=== PATIENT | male | born 1945 | race Caucasian/White ===

== ENCOUNTER 2024-09-21 14:08 | Outpatient (AMB) | payer MEDICARE, SELFPAY ==
--- NOTE | 2024-09-21 14:14 | MHC.OFFVIS ---
Intake Visit Reasons: BPH/ hx renal and bladder cancer Intake Note: New patient presents today for initial visit for BPH/hx renal and bladder cancer Urology Medication:Finasteride Blood Thinner:none Antibiotic Allergies:none PVR:137ml HPI Comments Details: Gaurav is a pleasant male. He is a patient of . He is seen for the following urologic conditions - lower urinary tract symptoms - renal cancer Bobby farleyprofessor of business Lower urinary tract symptoms Discussion regarding progression of lower urinary tract symptoms Prior prostate procedure proximally 20 years ago Has recurrent symptoms with urinary urgency and frequency and some decline in stream Urge and frequency of primary concern particularly when traveling Cystoscopy performed at [facility] recommendation for repeat prostate procedure Per report UDS performed showing obstructive pattern Discussion today regarding management of urge frequency and relationship with bladder instability Highly likely to resolve with repeat outlet procedure however may also reflect underlying bladder instability Start daily tadalafil for bladder stability Currently on finasteride Plan GreenLight laser prostate procedure Renal cancer Partial nephrectomy performed approximately 2014 No recurrence on follow-up imaging Review of Systems Const Denies chills and Denies fever(s) Card Reports no additional complaints and Denies syncope Resp Denies cough GI Denies abdominal pain and Denies heartburn Reports as per HPI and Denies change in libido Neuro Denies syncope Psych Denies change in libido Endo Denies change in libido Physical Exam Const General: cooperative, healthy appearing, comfortable and no acute distress Orientation/consciousness: patient oriented x3 HEENT Face and sinus: Yes normal facial exam Mouth: moist mucous membranes Neck Neck: Yes normal visual inspection, Yes full ROM and Yes trachea midline Chest Chest palpation & inspection: normal inspection of the chest Resp Effort & Inspection: normal respiratory effort, able to speak in complete sentences and no respiratory distress GI Inspection: Yes normal to inspection Back/Spine/Pelvis Cervical Spine: normal cervical lordosis Thoracic/Lumbar Spine: thoracic and lumbar spine normal to inspection Skin General skin exam: no rashes or lesions noted Neuro General: patient oriented x3, gait normal, tone normal and moves all extremities Extrem General: Yes normal to inspection and Yes capillary refill normal Office Procedures Post Void Residual Post Residual Void Post Void Residual (PVR): 137 [id number] Void Residual by ultrasound Results AMB Urinalysis, Automated UA Leukoctes 0 Idalia/uL Last Edit by MERY Davila on 09/21/24 16:36 UA Nitrite Negative Last Edit by MERY Davila on 09/21/24 16:36 UA Urobilinogen 0.2 mg/dL Last Edit by MERY Davila on 09/21/24 16:36 UA Protein 30 mg/dL Last Edit by MERY Davila on 09/21/24 16:36 UA pH 7.0 Last Edit by MERY Davila on 09/21/24 16:36 UA Blood 0 Crow/uL Last Edit by MERY Davila on 09/21/24 16:36 UA Specific [place] 1.010 Last Edit by MERY Davila on 09/21/24 16:36 UA Ketone Negative Last Edit by MERY Davila on 09/21/24 16:36 UA Bilirubin 0 mg/dL Last Edit by MERY Davila on 09/21/24 16:36 UA Glucose 0 mg/dL Last Edit by [facility] on 09/21/24 16:36 Results Reviewed Results Reviewed: Laboratory Last Values Urine pH (Auto) 7.0 09/21/24 16:36 Specific [place] (Auto) 1.010 09/21/24 16:36 Urine Protein (Auto) 30 mg/dL 09/21/24 16:36 Glucose (UA)(Auto) 0 mg/dL 09/21/24 16:36 Urine Ketones (Auto) Negative 09/21/24 16:36 Urine Blood (Auto) 0 Crow/uL 09/21/24 16:36 Urine Nitrite (Auto) Negative 09/21/24 16:36 Urine Bilirubin (Auto) 0 mg/dL 09/21/24 16:36 Urine Urobilinogen (Auto) 0.2 mg/dL 09/21/24 16:36 Leukocyte Esterase (Auto) 0 Idalia/uL 09/21/24 16:36 Assessment & Plan Assessment & Plan (1) Lower urinary tract symptoms due to benign prostatic hyperplasia: Code(s): N40.1 - Benign prostatic hyperplasia with lower urinary tract symptoms Category: Medical Plan Start daily tadalafil Schedule GreenLight laser We discussed the nature of the decision and reasonable options for performing a prostate intervention. Interventions include TURP, GreenLight laser enucleation of the prostate, GreenLight laser ablation of the prostate, transurethral incision of the prostate, and I-Tend prostate procedure. Options such as medical therapy were discussed. The relative uncertainties and benefits related to each alternate procedure were adequately discussed. General surgical risks including, but not limited to, pain, bleeding, infection, myocardial infarction, pulmonary embolus, deep vein thrombosis and cerebrovascular accident which may result in further hospitalization were discussed. Full disclosure of the procedure as well as all major risks, benefits and complications were discussed including but not limited to damage to the urethra or bladder neck, recurrent BPH, retrograde ejaculation, bladder infection, urge, de maricel frequency, incomplete emptying, dysuria, remote chance of erectile dysfunction, epididymitis, and meatal stenosis. The success rate of the procedure was discussed. Success of the procedure in the short-term does not necessarily guarantee that long-term success will be maintained. Suitable follow up will need to be maintained. The patient showed understanding of discussion. An opportunity was provided for questions to be answered and wishes to proceed with the following procedure. - Greenlight laser Orders: Orders AMB Urinalysis Automated Today Z13.9 - Encounter for screening, unspecified Medications: New tadalafil [id number] [facility] [id number] Member [id number] 5 mg PO DAILY 90 days 90 tabs 1RF ASTORGA N40.1 - Benign prostatic hyperplasia with lower urinary tract symptoms Patient Instructions: This note is constructed using voice recognition software. While every effort has been made to ensure accuracy principal military analyst errors may have been included. Imaging studies, laboratory and physical exam results were discussed and reviewed in detail. No major barriers to patient understanding were identified. An opportunity to ask questions regarding the treatment plan was provided. All questions were answered. The patient expressed understanding and agreement with the above treatment plan. The patient is aware they should contact our office by phone for worsening of their current condition or the appearance of new urologic symptoms. Compliance is encouraged with any medications and followup testing that is ordered. It is a privilege to participate in the urologic care of your patient. If you have any questions or concerns regarding treatment for the above conditions, or other urologic issues, please do not hesitate to contact me. The office telephone contact is [phone]. Sincerely, Dr Mateo Hawkins MD, [facility] - Urology Compassionate Specialist Care for the Genitourinary System Coding Level of Care Code New Pt Level 4 (08907) Diagnoses Lower urinary tract symptoms due to benign prostatic hyperplasia N40.1 CPT Codes Post Residual Void - PVR CPT Code: 82933-Ghef Void Residual by ultrasound ([id number])
--- OUTSIDE RECORDS SUMMARY | 2024-09-21 15:53 | XMS_ITS | Clinical Summary ---
Author Organization [facility] Address [address] [place] [address] Care Team Providers Care Massage Operator Name Role Phone Javier Paula MD Primary Care Provider Allergies Active Allergy Reactions Criticality Noted Date Comments Dust 10/14/2017 Grass 10/14/2017 Medications Medication Sig Dispensed Refills Start Date End Date Status alfuzosin (UROXATRAL) 10 MG 24 hr tablet Take 10 mg by mouth daily. 0 Active dutasteride (AVODART) 0.5 MG capsule Take 0.5 mg by mouth daily. 0 Active pravastatin (PRAVACHOL) tablet 20 mg Take 20 mg by mouth daily. 0 Active dilTIAZem (CARDIZEM CD) 120 MG 24 hr capsule Take 120 mg by mouth daily. 0 Active levothyroxine (SYNTHROID, LEVOXYL) tablet 88 mcg Take 88 mcg by mouth every morning on an empty stomach. 0 Active Active Problems Problem Noted Date Diagnosed Date Enlarged prostate with urinary obstruction 10/17 History of kidney cancer 10/17/2017 Gross hematuria 07/21/2016 Elevated PSA 06/20/2013 Resolved Problems Problem Noted Date Diagnosed Date Resolved Date Hematospermia 10/17/2017 10/17/2017 BPH without obstruction/lowe r urinary tract symptoms 07/21/2016 10/17/2017 Kidney carcinoma 07/21/2016 10/17/2017 Incomplete bladder emptying 04/21/2016 10/17/2017 Poor urinary stream 08/29/2015 10/18/19 18 Nocturia 06/20/2011 10/17/2017 Prostate disorder 06/20/2009 10/17/2017 Social History Tobacco Use Types Packs/Day Years Used Date Smoking Tobacco: Former Smokeless Tobacco: Never Alcohol Use Standard Drinks/Week Comments Yes 0 (1 standard drink = 0.6 oz pur e alcohol) Sex and Gender Information Value Date Recorded Sex Assigned at Not on file Gender Identity Not on file Sexual Orientation Not on file Last Filed Vital Signs Vital Sign Reading Time Taken Comments Blood Pressure 106/68 10/17/2017 8:48 AM EDT Pulse - - Temperature - - Respiratory Rate - - Oxygen Saturation - - Inhaled Oxygen Concentration - - Weight 84.8 kg (187 lb) 10/17/2017 8:48 AM EDT Height 180.3 cm (5' 11 ) 10/17/2017 8:48 AM EDT Body Mass Index 26.08 10/17/2017 8:48 AM EDT Plan of Treatment Health Maintenance Due Date Last Done Comments Hepatitis C Screening 1945 COVID-19 Vaccine (#1) 1947 Depression Screening 1959 Preventative Health Evaluation 1965 DTap / Tdap / Td (1 - Tdap) 1966 Shingrix-Zoster Vaccine (1 of 2) 1997 Fall Risk Assessment 2012 Pneumococcal Vaccine (1 of 1 - PCV) 2012 RSV Adult > 60+ Yrs or Pregn ant (1 - 1-dose 75+ series) 2022 Influenza Vaccine (#1) 2024 Hepatitis B Vaccines Aged Out No long er eligible based on patient's age to complete this topic RSV Ped < 20 months Aged Out No longe r eligible based on patient's age to complete this topic Care Teams Massage Operator Relationship Specialty Start Date End Date Javier Paula MD [address] [place] [address] PCP - General Family Medicine 10/07/17
== END 2024-09-21 15:16 | disposition home or self-care (01) ==
LOC: HO.HUSH 14:09
PROVIDERS: PCP Family Medicine; Visit Provider Urology
DX: Z13.9 Encounter for screening, unspecified (principal); N40.1 Benign prostatic hyperplasia with lower urinary tract symptoms
CPT/HCPCS: 99204

== ENCOUNTER → 2024-09-21 14:08 | Outpatient (BNVA) | payer MEDICARE, SELFPAY | PROVIDERS: PCP Family Medicine; Visit Provider Urology | DX: N40.1 Benign prostatic hyperplasia with lower urinary tract symptoms (principal) | CPT/HCPCS: 51798; 81003; 99202 ==

== ENCOUNTER 2024-12-03 08:20 | Day surgery (SDC) | payer MEDICARE, SELFPAY ==
[2024-11-29 13:22] VITALS: BMI 23.5
--- OUTSIDE RECORDS SUMMARY | 2024-11-30 13:06 | XMS_ITS | Clinical Summary ---
Author Organization [facility] Address [address] [place] [address] Care Team Providers Care Seamstress Fitter Name Role Phone Javier Paula MD Primary [...] - 1-dose 75+ series) 2022 Influenza Vaccine (Season Ended) 2025 Hepatitis B Vaccines Aged Out No long er eligible based on patient's age to complete this topic RSV Ped < 20 months Aged Out No longe r eligible based on patient's age to complete this topic Care Teams Seamstress Fitter Relationship Specialty Start Date End Date Javier Paula MD [address] [place] [address] PCP - General Family Medicine 10/07/17
--- NOTE | 2024-11-30 13:46 | HO.ANESPROP2 ---
Documented by User: Lindy Rene NP 11/30/24 13:47 HPI - Anesthesia Eval Consult details Narrative: 79yo M for Laser Ablation Prostate w/Green Light PMFSH Active Problems Active Problems: All Active Problems Lower urinary tract symptoms due to benign prostatic hyperplasia (Acute) Past Medical History Medical History Renal cancer SVT (supraventricular tachycardia) Palpitations Thyroid disease Hyperlipidemia Constipation Chronic insomnia BPH (benign prostatic hyperplasia) Surgical History Surgical History Hx of partial nephrectomy S/P TURP (status post transurethral resection of prostate) Social History Social History Are you a primary acute care registered nurse to a significant other at home: No Do you presently have visiting nurse or other home services: No Patient Tobacco Use Status: Former Tobacco user Tobacco use type: Cigarette Years Smoked: 2 Smoked in Last 30 Days: No Use of substances other than those prescribed or required for medical reasons: No Have you been hit, kicked, punched, or otherwise hurt by someone within the past year? If so, by whom?: No Are you DNR?: No Advance Directives: No Advance Directives Information Provided: No Advance Directives on File: No Poor oral hygiene: No Meds Allergies Allergy/AdvReac Type Severity Reaction Status Date / Time Beta-Blockers AdvReac Intermediate Fatigued Verified 12/03/24 08:27 (Beta-Adrenergic Bloc Home Medications ?Medication ?Instructions ?Recorded ?Confirmed ?Last Taken ?Type alfuzosin 10 mg tablet,extended 10 mg PO DAILY 09/21/24 12/03/24 12/02/24 History release 24 hr finasteride 1 mg tablet 1 mg PO DAILY 09/21/24 12/03/24 12/02/24 History levothyroxine 112 mcg capsule 112 mcg PO DAILY 09/21/24 12/03/24 12/03/24 History pravastatin 20 mg tablet 20 mg PO DAILY 09/21/24 12/03/24 12/02/24 History diltiazem HCl 120 mg 120 mg PO DAILY 12/03/24 12/03/24 12/02/24 History capsule,extended release 24 hr Exam Height,Weight and Vital Signs: Height 5 ft 11.26 in Weight 77 kg Assessment and Plan Assessment Anesthesia Assessment: Chart Reviewed Documented by User: Katiuska Linares MD 12/03/24 10:21 PMFSH Past Medical History Medical History Renal cancer SVT (supraventricular tachycardia) Palpitations Thyroid disease Hyperlipidemia Constipation Chronic insomnia BPH (benign prostatic hyperplasia) Surgical History Surgical History Hx of partial nephrectomy S/P TURP (status post transurethral resection of prostate) History of Problems with Anesthesia: No Social History Social History Are you a primary acute care registered nurse to a significant other at home: No Do you presently have visiting nurse or other home services: No Patient Tobacco Use Status: Former Tobacco user Tobacco use type: Cigarette Years Smoked: 2 Smoked in Last 30 Days: No Use of substances other than those prescribed or required for medical reasons: No Have you been hit, kicked, punched, or otherwise hurt by someone within the past year? If so, by whom?: No Are you DNR?: No Advance Directives: No Advance Directives Information Provided: No Advance Directives on File: No Poor oral hygiene: No Meds Allergies Allergy/AdvReac Type Severity Reaction Status Date / Time Beta-Blockers AdvReac Intermediate Fatigued Verified 12/03/24 08:27 (Beta-Adrenergic Bloc Home Medications ?Medication ?Instructions ?Recorded ?Confirmed ?Last Taken ?Type alfuzosin 10 mg tablet,extended 10 mg PO DAILY 09/21/24 12/03/24 12/02/24 History release 24 hr finasteride 1 mg tablet 1 mg PO DAILY 09/21/24 12/03/24 12/02/24 History levothyroxine 112 mcg capsule 112 mcg PO DAILY 09/21/24 12/03/24 12/03/24 History pravastatin 20 mg tablet 20 mg PO DAILY 09/21/24 12/03/24 12/02/24 History diltiazem HCl 120 mg 120 mg PO DAILY 12/03/24 12/03/24 12/02/24 History capsule,extended release 24 hr Exam Airway Mallampati Class: III TM Dist: >3cm Neck ROM: Full Loose/Missing/Broken Teeth: No Heart: RRR Lungs: CTA Assessment and Plan Assessment Anesthesia Assessment: Anesthesia Plan Discussed Final Anesthetic Review History of Problems with Anesthesia: No NPO: Yes ASA Class: II Final Preanesthetic Review: Meds/Allgs Chart Reviewed, Consent Obtained/Reviewed and Anes Risks/Benef Reviewed Patient Risk: Low Procedure Risk: Low Anesthetic Plan Anesthetic Plan: GA Disposition: Standard PACU
[2024-12-03 08:29] VITALS: BP 127/58; PULSE 61; RESP 16; TEMP 36.4; O2SAT 100; BMI 23.2
[2024-12-03] MEDS: Lactated Ringers 1,000 ML 100 ML IVCONT (08:49)
--- NOTE | 2024-12-03 09:00 | PC.NURSE ---
Patient in preop. Question of first degree AV block on monitor. No EKG on file for comparison. Dr. Linares made aware. No new orders at this time. OR nurse Violeta Evangelista made aware.
--- NOTE | 2024-12-03 10:25 | MHC.SHP ---
Pre-Procedural Eval Section A - 24 Hr Update-Section A only Date of Service: 12/03/24 The patient is an INPATIENT: No Changes since office visit: No Cold of Flu in the past 2 weeks, No New Medical Problems, No Changes in Medication and No Patient answered all questions The patient has been examined within 24 hours of the surgical procedure. The History & Physical has been completed within 30 days and I have reviewed it.: Yes Section B - Complete if H&P > 30 days Chief Complaint: Benign prostatic hyperplasia with lower urinary tr Relevant Family History (Specify if Yes): No Relevant Social History: None Present Medications: see Short Stay Collaborative assessment Medical History: No relevant PMH History of Previous Operations: No relevant previous surgery Allergies: Allergies Allergy/AdvReac Type Severity Reaction Status Date / Time Beta-Blockers AdvReac Intermediate Fatigued Verified 12/03/24 08:27 (Beta-Adrenergic Bloc Review of Systems Sugical H&P ROS: Negative: Constitution, Cardiovascular, Respiratory, Neurological, Psychiatric, Hem-Onc, Allergic/Immunologic, Gastrointestinal, Genitourinary, Musculoskeletal, Integumentary, Endocrine and Eyes/Ears/Nose/Throat Exam Surgical H&P Exam: Normal: HEENT, Normal: Heart, Normal: Lungs, Normal: Extremities, Normal: Abdomen, Normal: Skin and Normal: Neurological Plan Diagnosis/Plan: Unchanged (greenlight laser prostatetcomy) I have reviewed the history and physical and performed a pertinent physical examination on my patient. No changes have occurred unless specified. Time Spent With Patient Time: Total time managing care of this patient today ____ minutes.
[2024-12-03] MEDS: levoFLOXacin/D5W 500 MG/100 ML PIGGYBACK 100 MG IV (10:40)
--- NOTE | 2024-12-03 11:28 | P.OP_ITS ---
Operative Note Operative Note Date of Service: 12/03/24 Narrative: PreOperative Diagnosis: Recurrent Bladder outlet obstruction Post Operative Diagnosis: Recurrent Bladder outlet obstruction Procedure: GreenLight Laser Enucleation of the prostate CPT 70175 Surgeon: Dr Mateo Hawkins Anesthesia: General History of bladder outlet obstruction. Prior TURP proximally 20 years ago Recurrent symptoms particularly weakness of stream and hesitancy Treated with alpha-holly and other medications. Still with symptoms. On cystoscopy in office has recurrent trilobar impingement. Recommendation for prostate procedure with laser enucleation of prostate. Risks and benefits have been discussed. Focus was placed on development of retrograde ejaculation which is a normal part of this procedure. Procedure: After informed consent was verified the patient was brought to the operating room and placed in a supine position. Anesthesia was administered per protocol. Patient was placed in modified dorsal lithotomy position and prepped and draped in a sterile fashion. Safety pause time-out was confirmed. Antibiotics have been given. A Twenty-four Pakistani laser cystoscope was inserted per urethra. No abnormalities were found of the anterior and bulbar urethra. The prostatic urethra shows - recurrent hypertrophy particularly left lateral lobe and mild recurrent median lobe crowding. The bladder was examined and both ureteric orifices were seen in their normal positions away from the area of interest. Prior TURP defect in proximal portion readily apparent. Bladder trabeculation with multiple small enlarged cellules/diverticula - grade 2/3 - pictures taken Using a GreenLight laser with initial settings of 80 st incisions were made at the 5 and 7 o'clock position to delineate the recurrent median lobe. The incisions were taken down from the bladder neck down to the area just proximal of the veru. These were gradually deepened in order to define the lateral aspects of the median lobe area. The deep boundary of enucleation was defined by the prostate surgical capsule. Once clearly defined the grooves were extended in the lateral directions in order to create a deep groove. The median lobe was then ablated and enucleated tissue released into the bladder with the laser power increased to 120 W - moderate size Once the median lobe area had been cleared, attention was directed to the lateral lobes. The left lateral lobe had the most significant amount of regrowth. First the 05:00 o'clock groove was further developed. This was moved in the lateral direction to undermine the tissue on the lateral side running from the bladder neck to the prostate apex. The ureteric orifice was used to guide incisions. The laser fiber was placed at the 1 o'clock position and a secondary groove was developed down to the level of prostatic capsule. The creation of a second deep groove defined a segment of intervening tissue similar to a slice of orange. At the apex of the prostate the laser was used to vertically link the two grooves releasing the intervening tissue and creating a segment of tissue. This tissue was then removed with a combination of enucleation and ablation working from the apex toward the bladder neck. A similar procedure was repeated on the patient's right-hand side. The only differences being the position of the lateral groove at he 7 o'clock position and the secondary groove at the 11 o'clock position, Otherwise the procedure was developed in a mirror fashion. Laser power 120 W After the majority of tissue had been debulked remnant tissue was ablated with the side fire laser and the curve of the prostate followed up each side wall clearly defining the anterior remnant strip that remained between the 11 and 1 o'clock positions. In this case the anterior tissue protruded into the prostatic fossa and was partially ablated with the laser At completion debris and pieces of prostate were removed from the bladder with irrigation. We could note prostate calcifications marking the surgical capsule were within the field Both ureteric orifices were reviewed again in shown to be patent in away from any areas of energy damage. The apical area was reviewed and any stray mucosal ooze was controlled. A 22 Pakistani 30 cc balloon Chao catheter was placed into the bladder using a flexible stylet. Clear efflux was obtained upon irrigation with a Trino piston syringe. 30 cc was placed in the balloon and gentle traction was placed. A snap was used to hold tension on the catheter to control bleeding during patient moved and transported. A drainage bag was placed. Once transportation is complete to the PACU the snap will be removed. The patient tolerated the procedure well, he was extubated in the operating and transferred in a stable condition to the recovery area. Total Power 146 kJ Lasing time 22:10 Pathology: Prostate tissue Drains: Chao catheter
[2024-12-03 11:33] VITALS: BP 108/57; PULSE 59; RESP 18; TEMP 36.2; O2SAT 100
[2024-12-03 11:38] VITALS: BP 90/42; PULSE 57; RESP 18; O2SAT 97
[2024-12-03 11:43] VITALS: BP 99/49; PULSE 52; RESP 16; O2SAT 98
[2024-12-03 11:48] VITALS: BP 101/43; PULSE 53; RESP 16; O2SAT 98
[2024-12-03 12:03] VITALS: BP 111/43; PULSE 57; RESP 20; TEMP 36.1; O2SAT 97
[2024-12-03] MEDS: oxyCODONE HCl Immed Release 5 MG TABLET PO (12:29)
== END 2024-12-03 12:40 | disposition home or self-care (01) ==
PROVIDERS: PCP Family Medicine; Visit Provider Urology
PROC: (CPT 52648; principal; 2024-12-03 10:00)
DX: N40.1 Benign prostatic hyperplasia with lower urinary tract symptoms (principal); N13.8 Other obstructive and reflux uropathy; R39.15 Urgency of urination; R39.12 Poor urinary stream; R35.0 Frequency of micturition; Z85.528 Personal history of other malignant neoplasm of kidney; Z90.5 Acquired absence of kidney; Z79.899 Other long term (current) drug therapy; Z98.890 Other specified postprocedural states; Z87.891 Personal history of nicotine dependence
CPT/HCPCS: 52649; 88305; J1100; J1885; J1956; J2003; J2405; J2704; J3010

== ENCOUNTER → 2024-12-03 08:20 | Outpatient (BNV) | payer MEDICARE, SELFPAY | PROVIDERS: PCP Family Medicine; Visit Provider Urology | DX: N32.0 Bladder-neck obstruction (principal) | CPT/HCPCS: 52649 ==

== ENCOUNTER → 2024-12-05 09:26 | Outpatient (BNVA) | payer MEDICARE, SELFPAY | PROVIDERS: PCP Family Medicine; Visit Provider Urology | DX: N40.1 Benign prostatic hyperplasia with lower urinary tract symptoms (principal) | CPT/HCPCS: 51700; 51798 ==

== ENCOUNTER 2025-01-16 14:28 | Outpatient (AMB) | payer MEDICARE, SELFPAY ==
--- NOTE | 2025-01-16 14:35 | MHC.OFFVIS ---
Intake Visit Reasons: Greenlight/pvr Intake Note: New patient presents today for green light Post Op Urology Medication:Alfuzosin,Finasteride,Tadalafil Blood Thinner:none Antibiotic Allergies:none PVR:194 Test Fixture Designer Required: No Accompanied by: Self / Same As Patient Allergies Beta-Blockers (Beta-Adrenergic Bloc Adverse Reaction (Intermediate, Verified 01/16/25 14:37) Fatigued HPI Comments Details: Gaurav is a pleasant male. He is a patient of . He is seen for the following urologic conditions - lower urinary tract symptoms - renal cancer Six week follow-up GreenLight laser 200 cc residual Still remains on finasteride and tadalafil Stop finasteride Continue tadalafil Six-month follow-up check PSA Oxybutynin 5 mg if needed Lower urinary tract symptoms Discussion regarding progression of lower urinary tract symptoms Prior prostate procedure proximally 20 years ago Has recurrent symptoms with urinary urgency and frequency and some decline in stream Urge and frequency of primary concern particularly when traveling Cystoscopy performed at [facility] recommendation for repeat prostate procedure Per report UDS performed showing obstructive pattern Discussion today regarding management of urge frequency and relationship with bladder instability Highly likely to resolve with repeat outlet procedure however may also reflect underlying bladder instability Start daily tadalafil for bladder stability Currently on finasteride GreenLight laser procedure - 12/12 Renal cancer Partial nephrectomy performed approximately 2014 No recurrence on follow-up imaging [facility] Medical History Renal cancer SVT (supraventricular tachycardia) Palpitations Thyroid disease Hyperlipidemia Constipation Chronic insomnia BPH (benign prostatic hyperplasia) Surgical History Hx of partial nephrectomy S/P TURP (status post transurethral resection of prostate) Social History Are you a primary career services coordinator to a significant other at home: No Do you presently have visiting nurse or other home services: No Patient Tobacco Use Status: Former Tobacco user Tobacco use type: Cigarette Years Smoked: 2 Assessment & Plan Assessment & Plan (1) Lower urinary tract symptoms due to benign prostatic hyperplasia: Code(s): N40.1 - Benign prostatic hyperplasia with lower urinary tract symptoms Category: Medical Plan Six-month follow-up PSA Medications: New oxybutynin chloride ER 1 tab in 24 hrs if needed 5 mg PO ONCE PRN 30 tabs 1RF bladder urge 30 days N40.1 - Benign prostatic hyperplasia with lower urinary tract symptoms Refilled tadalafil [id number] [facility] [id number] Member [id number] 5 mg PO DAILY 90 tabs 1RF ASTORGA 90 days N40.1 - Benign prostatic hyperplasia with lower urinary tract symptoms Patient Instructions: This note is constructed using voice recognition software. While every effort has been made to ensure accuracy outsole flexer errors may have been included. Imaging studies, laboratory and physical exam results were discussed and reviewed in detail. No major barriers to patient understanding were identified. An opportunity to ask questions regarding the treatment plan was provided. All questions were answered. The patient expressed understanding and agreement with the above treatment plan. The patient is aware they should contact our office by phone for worsening of their current condition or the appearance of new urologic symptoms. Compliance is encouraged with any medications and followup testing that is ordered. It is a privilege to participate in the urologic care of your patient. If you have any questions or concerns regarding treatment for the above conditions, or other urologic issues, please do not hesitate to contact me. The office telephone contact is [phone]. Sincerely, Dr Mateo Hawkins MD, [facility] - Urology Compassionate Specialist Care for the Genitourinary System Coding Level of Care Code Est Pt Level 3 (58524) Diagnoses Lower urinary tract symptoms due to benign prostatic hyperplasia N40.1
--- OUTSIDE RECORDS SUMMARY | 2025-01-16 15:11 | XMS_ITS | Encounter Summary ---
Author Organization [facility] Address [address] [address] Phone Care Team Providers Care Supervisor Throwing Department Name Role Phone Javier Paula MD Primary Care Provider [phone] Javier Paula MD Primary Care Provider [phone] Encounter Details Date Type Department Care Team (Late st Contact Info) Description 08/12/2017 Ancillary Orders [facility] External Provider Virtual Department [address] [place] [address] Alistair Cotton MD [address] [place] [address], [address] [place] [address] [email or web address] Personal history of other malignant neoplasm of kidney (CODE); Gross hematuria Social History Tobacco Use Types Packs/Day Years Used Date Smoking Tobacco: Never Assessed Sex and Gender Information Value Date Recorded Sex Assigned at Not on file Legal Sex Male 7:31 PM EST Gender Identity Not on file Sexual Orientation Not on file documented as of this encounter Plan of Treatment Not on file documented as of this encounter Results * US Kidneys (10/13/2017 8:13 AM EDT) Anatomical Region Laterality Modality Abdomen, Kidney Ultrasound 10/13/2017 8:04 AM EDT Impressions 10/13/2017 8:21 AM EDT No evidence of tumor recurrence or acute findings. POS [id number] Narrative 10/13/2017 8:21 AM EDT COMPARISON: 01/24/2017. RENAL ULTRASOUND FINDINGS: Right kidney measures 10 x 5 cm. Left kidney measures 13 x 5 cm. No hydronephrosis, solid masses or calculi. Cortical echogenicity and thickness are normal. No perinephric fluid collections. Procedure Note Chavez Weeks MD - 10/13/2017 COMPARISON: 01/24/2017. RENAL ULTRASOUND FINDINGS: Right kidney measures 10 x 5 cm. Left kidney measures 13 x 5 cm. Nohydronephrosis, solid masses or calculi. Cortical echogenicity andthickness are normal. No perinephric fluid collections. IMPRESSION: No evidence of tumor recurrence or acute findings. POS [id number] us Alistair Cotton MD IMG US RENAL Final Result * XR CHEST PA AND LATERAL 2 VIEWS (10/13/2017 8:11 AM EDT) Anatomical Region Laterality Modality Chest Radiographic Nazia ging 10/13/2017 9:41 AM EDT Impressions 10/13/2017 9:42 AM EDT Unremarkable plain film appearance of the chest. No evidence of metastatic disease nor acute pathology. POS [id number] Narrative 10/13/2017 9:42 AM EDT PA and lateral chest, 2 views, 3 images Compare 01/24/2017. No pulmonary nodules or masses have become apparent No infiltrate, interstitial disease or effusion. No gross adenopathy. Normal heart and mediastinal contour. No worrisome bony abnormalities. Procedure Note David Templeton MD - 10/13/2017 PA and lateral chest, 2 views, 3 images Compare 01/24/2017. No pulmonary nodules or masses have become apparent No infiltrate, interstitial disease or effusion. No gross adenopathy. Normal heart and mediastinal contour. No worrisome bony abnormalities. IMPRESSION: Unremarkable plain film appearance of the chest. No evidence of metastaticdisease nor acute pathology. POS [id number] Alistair Cotton MD IMG XR CHEST Final Result documented in this encounter Visit Diagnoses Diagnosis Personal history of other malignant neoplasm of kidney (CODE) Gross hematuria Personal history of other malignant neoplasm of kidney (CODE) Gross hematuria Personal history of other malignant neoplasm of kidney (CODE) Gross hematuria documented in this encounter Care Teams Supervisor Throwing Department Relationship Specialty Start Date End Date Javier Paula MD [address] [place] [address] PCP - General 04/05/17 11/02/21 Javier Paula MD [address] [place] [address] PCP - General Family Medicine 11/03/21 documented as of this encounter Additional Source Comments The information contained in this document represents components of the legal health record. It is not the complete legal health record.[facility]
--- OUTSIDE RECORDS SUMMARY | 2025-01-16 15:11 | XMS_ITS | Clinical Summary ---
Author Organization [facility] Address [address] [place] [address] Care Team Providers Care Loom Fixer Helper Name Role Phone Javier Paula MD Primary [...] 1-dose 75+ series) 2022 Influenza Vaccine (#1) 2025 Hepatitis B Vaccines Aged Out No long er eligible based on patient's age to complete this topic RSV Ped < 20 months Aged Out No longe r eligible based on patient's age to complete this topic Care Teams Loom Fixer Helper Relationship Specialty Start Date End Date Javier Paula MD [address] [place] [address] PCP - General Family Medicine 10/07/17
== END 2025-01-16 15:40 | disposition home or self-care (01) ==
LOC: HO.HUSH 14:28
PROVIDERS: PCP Family Medicine; Visit Provider Urology
DX: N40.1 Benign prostatic hyperplasia with lower urinary tract symptoms (principal)
CPT/HCPCS: 99024

== ENCOUNTER → 2025-01-16 14:28 | Outpatient (BNVA) | payer MEDICARE, SELFPAY | PROVIDERS: PCP Family Medicine; Visit Provider Urology | DX: N40.1 Benign prostatic hyperplasia with lower urinary tract symptoms (principal); R35.0 Frequency of micturition; R39.15 Urgency of urination; C64.9 Malignant neoplasm of unspecified kidney, except renal pelvis; Z90.79 Acquired absence of other genital organ(s); Z90.5 Acquired absence of kidney; Z79.899 Other long term (current) drug therapy | CPT/HCPCS: 51798; 99212 ==

== ENCOUNTER 2025-05-01 10:38 | Outpatient (AMB) | payer MEDICARE, SELFPAY ==
--- OUTSIDE RECORDS SUMMARY | 2025-04-28 23:59 | XMS_ITS | Continuity of Care Document ---
Author Organization [facility] Address [address] [place] [address]- Care Team Providers Care City Weighmaster Name Role Phone Chai GUTIERREZ, Javier Galaviz Primary Care Physician Encounter [facility] Date(s): 03/29/25 - 04/28/25 [facility] [address] [place] [address]- Encounter Type: Triage Allergies, Adverse Reactions, Alerts Substance Criticality Severity Reaction Reaction Severity Status beta blockers Unable to assess criticality Persistent Moderate fatigue and sexual dysfunction Active Other Environmental Allergy 1 Low criticality Mild Active 1seasonal very mild Immunizations Given and Recorded Vaccine Date Status Refusal Reason influenza virus vaccine, inactivated 03/26/25 Darren rded influenza virus vaccine, inactivated 02/28/24 Darren rded influenza virus vaccine, inactivated 03/21/23 Darren rded influenza virus vaccine, inactivated 02/26/22 Darren rded influenza virus vaccine, inactivated 03/18/21 Darren rded influenza virus vaccine, inactivated 1 03/31/18 Gi eron influenza virus vaccine, inactivated 05/04/17 Darren rded influenza virus vaccine, inactivated 05/04/14 Darren rded influenza virus vaccine, inactivated 2 04/12/12 Gi eron influenza virus vaccine, inactivated 3 04/01/11 Gi eron SARS-CoV-2(COVID-19)mRNA-LNP vac([id number]) 03/06/25 Recorded SARS-CoV-2(COVID-19)mRNA-LNP vac(epw767) 03/21/23 Recorded SARS-CoV-2(COVID-19)mRNA-LNP vac(nte125) 02/18/24 Recorded tetanus/diphtheria/pertussis, acel(Tdap) 10/13/22 Recorded [id number] 12y+ bivalent booster vax 02/26/22 Recorded SARS-CoV-2 mRNA ([id number]) vax 09/23/21 Recorded SARS-CoV-2 (COVID-19) mRNA BNT-162b2 vac 03/24/21 Recorded SARS-CoV-2 (COVID-19) mRNA BNT-162b2 vac 09/05/20 Recorded SARS-CoV-2 (COVID-19) mRNA BNT-162b2 vac 08/13/20 Recorded pneumococcal 13-valent vaccine 4 01/01/19 Given Fluarix (oldterm) 04/07/13 Given pneumococcal 23-valent vaccine 5 08/29/12 Given Tetanus-Diphth Toxoids, Adult (oldterm) 6 11/25/11 Given Zoster Vaccine Live 7 04/08/11 Given 1Result Comment: [03/31/2018] [facility] # [id number] 2Admin Note: was not entered on date given, was on billing sheet. Entered after.tt 3Admin Note: VIM 01/12/11 4Result Comment: [facility]#[id number] 5Admin Note: VIM 10/03/09 waiver signed 6Admin Note: in ED at [facility] 7Admin Note: vim given dated 03/25/09 Medications alfuzosin 10 mg oral tablet, extended release See Instructions, TAKE 1 TABLET BY MOUTH DAILY, # 90 tablet, 1 Refills, 02/12/25 11:13:00 AM EDT, [facility]/pharmacy #[id number], 181.2, cm, 02/09/24 7:57:00 EDT, Height Start Date: 02/12/25 Status: Ordered Medication Dispense Status: Completed Quantity: 90.0 Unit: tablet Total Allowed Fills: 2 Fills Dispensed: 0 Colace sodium 100 mg oral capsule 100 mg, 1, capsule, By Mouth, Daily, PRN, # 30 capsule, Refills 2, Tot. Refills 2, Maintenance, hard stool, 11/10/22 3:41:00 PM EDT, Route to Pharmacy Electronically, [facility]/pharmacy #[id number], Partial fill upon patient request if the prescription is for a schedule II opioid drug., 180.5, cm, 11/10/22 15:04:00 EDT, Height, 81.2, kg, 01/30/23 8:01:00 EST, Dry Weight Start Date: 11/10/22 Stop Date: 02/08/23 Status: Ordered Medication Dispense Status: Completed Quantity: 30.0 Unit: capsule Total Allowed Fills: 3 Fills Dispensed: 0 Indications: Perianal venous thrombosis; DilTIAZem (Eqv-Cardizem CD) 120 mg/24 hours oral capsule, extended release 1 capsule, By Mouth, Daily, # 90 capsule, 3 Refills, Maintenance, 03/26/25 2:43:00 PM EDT, [facility]/pharmacy #[id number], 181.2, cm, 03/26/25 14:10:00 EDT, Height Start Date: 03/26/25 Status: Ordered Medication Dispense Status: Completed Quantity: 90.0 Unit: capsule Total Allowed Fills: 4 Fills Dispensed: 0 finasteride 5 mg oral tablet 1 tablet = 5 mg, By Mouth, Daily, # 90 tablet, 1 Refills, Maintenance, 02/12/25 11:13:00 AM EDT, Tablet, [facility]/pharmacy #[id number], Partial fill upon patient request if the prescription is for a schedule II opioid drug., 181.2, cm, 02/09/24 7:57:00 EDT, Height Start Date: 02/12/25 Status: Ordered Medication Dispense Status: Completed Quantity: 90.0 Unit: tablet Total Allowed Fills: 2 Fills Dispensed: 0 Indications: Benign prostatic hyperplasia with lower urinary tract symptoms; levothyroxine 0.112 mg oral tablet 1 tablet, By Mouth, Daily, # 90 tablet, 3 Refills, Maintenance, 07/10/24 1:08:00 PM EST, [facility]/pharmacy #[id number], 181.2, cm, 02/09/24 7:57:00 EDT, Height, 81.2, kg, 07/19/22 8:01:00 EST, Dry Weight Start Date: 07/10/24 Status: Ordered Medication Dispense Status: Completed Quantity: 90.0 Unit: tablet Total Allowed Fills: 4 Fills Dispensed: 0 pravastatin 20 mg oral tablet 1, tablet, By Mouth, Daily, # 90 tablet, Refills 1, Tot. Refills 1, Maintenance, 02/12/25 11:13:00 AM EDT, Route to Pharmacy Electronically, [facility]/pharmacy #[id number], 181.2, cm, 02/09/24 7:57:00 EDT, Height Start Date: 02/12/25 Status: Ordered Medication Dispense Status: Completed Quantity: 90.0 Unit: tablet Total Allowed Fills: 2 Fills Dispensed: 0 traZODone 50 mg oral tablet 50 mg, 1, tablet, By Mouth, Daily at bedtime, # 90 tablet, Refills 3, Tot. Refills 3, Maintenance, 03/26/25 2:43:00 PM EDT, Route to Pharmacy Electronically, [facility]/pharmacy #[id number], Partial fill upon patient request if the prescription is for a schedule II opioid drug., 181.2, cm, 03/26/25 14:10:00 EDT,Height Start Date: 03/26/25 Status: Ordered Medication Dispense Status: Completed Quantity: 90.0 Unit: tablet Total Allowed Fills: 4 Fills Dispensed: 0 Problem List Condition Confirmation Course Effective Dates Status H ealth Status Informant Benign prostatic hyperplasia with incomplete bladder emptying Confirmed Active Chronic insomnia Confirmed Active Constipation Confirmed Active External hemorrhoids- colonsocopy 2014 Confirmed Active Hyperlipidemia Confirmed Active Hypothyroidism Confirmed Active Lumbar radiculopathy Confirmed Active Palpitations Confirmed Active SVT - Supraventricular tachycardia Confirmed 2002 Active Social History Social History Type Response Sexual Gender identity: Johnny ntifies as male. Smoking Status Former smoker entered on: 05/11/13 Sex Sex Representation Male (finding) Patient Care team information Care Team Personnel Name: Javier Paula MD Position: [facility] Physician - Primary Care Member Role: PCP Address: [address] [place] [address] Telecom: Name: Marquita Harrison Position: [facility] Outreach Member Role: Lifetime Consulting Physician Care Team Related Persons Name: HAILEE PARHAM Insurance Providers Guarantor name: CHAVEZ PARHAM Health Plan Information #: 1 Payer: FRANCISCO J: ADVANCED PAYMENT EXAM Payer Identifier: NA Member Number: [id number] Group Number: NA Subscriber Identifier: NA Relationship to Subscriber: self Coverage Type: Other specified but not otherwise classifiable (includes Hospice - Unspecified plan) Coverage Verification Date: NA Telecom: NA Address:
--- OUTSIDE RECORDS SUMMARY | 2025-04-28 23:59 | XMS_ITS | Continuity of Care Document ---
Author Organization [facility] Address [address] [place] [address]- Care Team Providers Care Casing Grader Name Role Phone Chai GUTIERREZ, Javier Galaviz Primary Care Physician Encounter [facility] Date(s): 03/29/25 - 04/28/25 [facility] [address] [place] [address]- Encounter Type: Triage Allergies, Adverse Reactions, Alerts [...] vaccine, inactivated 3 04/01/11 Gi eron SARS-CoV-2(COVID-19)mRNA-LNP vac([id number]) 03/06/25 Recorded SARS-CoV-2(COVID-19)mRNA-LNP vac([id number]) 03/21/23 Recorded SARS-CoV-2(COVID-19)mRNA-LNP vac(ivp973) 02/18/24 Recorded tetanus/diphtheria/pertussis, acel(Tdap) 10/13/22 Recorded [id number] 12y+ bivalent booster vax 02/26/22 Recorded SARS-CoV-2 mRNA ([id number]) vax 09/23/21 Recorded SARS-CoV-2 (COVID-19) mRNA BNT-162b2 vac 03/24/21 Recorded SARS-CoV-2 (COVID-19) mRNA BNT-162b2 vac 09/05/20 Recorded SARS-CoV-2 (COVID-19) mRNA BNT-162b2 vac 08/13/20 Recorded pneumococcal 13-valent vaccine 4 01/01/19 Given Fluarix (oldterm) 04/07/13 Given pneumococcal 23-valent vaccine 5 08/29/12 Given Tetanus-Diphth Toxoids, Adult (oldterm) 6 11/25/11 Given Zoster Vaccine Live 7 04/08/11 Given 1Result Comment: [03/31/2018] [facility] # [id number] 2Admin Note: was not entered on date given, was on billing sheet. Entered after.tt 3Admin Note: VIM 01/12/11 4Result Comment: [facility]#[id number] 5Admin Note: VIM 10/03/09 waiver signed 6Admin Note: [facility] ED [facility] 7Admin Note: vim given dated 03/25/09 Medications alfuzosin 10 mg oral tablet, extended release See Instructions, TAKE 1 TABLET BY MOUTH DAILY, # 90 tablet, 1 Refills, 02/12/25 11:13:00 AM EDT, [facility]/pharmacy #[id number], 181.2, cm, 02/09/24 7:57:00 EDT, Height Start Date: 02/12/25 Status: Ordered Medication Dispense Status: Completed Quantity: 90.0 Unit: tablet Total Allowed Fills: 2 Fills Dispensed: 0 Colace sodium 100 mg oral capsule 100 mg, 1, capsule, By Mouth, Daily, PRN, # 30 capsule, Refills 2, Tot. Refills 2, Maintenance, hard stool, 11/10/22 3:41:00 PM EDT, Route to Pharmacy Electronically, [facility]/pharmacy #[id number], Partial fill upon patient request if the prescription is for a schedule II opioid drug., 180.5, cm, 11/10/22 15:04:00 EDT, Height, 81.2, kg, 07/19/22 8:01:00 EST, Dry Weight Start Date: 11/10/22 Stop Date: 02/08/23 Status: Ordered Medication Dispense Status: Completed Quantity: 30.0 Unit: capsule Total Allowed Fills: 3 Fills Dispensed: 0 Indications: Perianal venous thrombosis; DilTIAZem (Eqv-Cardizem CD) 120 mg/24 hours oral capsule, extended release 1 capsule, By Mouth, Daily, # 90 capsule, 3 Refills, Maintenance, 03/26/25 2:43:00 PM EDT, [facility]/pharmacy #[id number], 181.2, cm, 03/26/25 14:10:00 EDT, Height Start Date: 03/26/25 Status: Ordered Medication Dispense Status: Completed Quantity: 90.0 Unit: capsule Total Allowed Fills: 4 Fills Dispensed: 0 finasteride 5 mg oral tablet 1 tablet = 5 mg, By Mouth, Daily, # 90 tablet, 1 Refills, Maintenance, 02/12/25 11:13:00 AM EDT, Tablet, [facility]/pharmacy #[id number], Partial fill upon patient request [...] 3 Refills, Maintenance, 07/10/24 1:08:00 PM EST, [facility]/pharmacy #[id number], 181.2, cm, 02/09/24 7:57:00 EDT, Height, 81.2, kg, 07/19/22 8:01:00 EST, Dry Weight Start Date: 07/10/24 Status: Ordered Medication Dispense Status: Completed Quantity: 90.0 Unit: tablet Total Allowed Fills: 4 Fills Dispensed: 0 pravastatin 20 mg oral tablet 1, tablet, By Mouth, Daily, # 90 tablet, Refills 1, Tot. Refills 1, Maintenance, 02/12/25 11:13:00 AM EDT, Route to Pharmacy Electronically, [facility]/pharmacy #[id number], 181.2, cm, 02/09/24 7:57:00 EDT, Height Start Date: 02/12/25 Status: Ordered Medication Dispense Status: Completed Quantity: 90.0 Unit: tablet Total Allowed Fills: 2 Fills Dispensed: 0 traZODone 50 mg oral tablet 50 mg, 1, tablet, By Mouth, Daily at bedtime, # 90 tablet, Refills 3, Tot. Refills 3, Maintenance, 03/26/25 2:43:00 PM EDT, Route to Pharmacy Electronically, [facility]/pharmacy #[id number], Partial fill upon patient request [...] Team Personnel Name: Javier Paula MD Position: [facility] Physician - Primary Care Member Role: PCP Address: [address] [place] [address] Telecom: Name: Marquita Harrison Position: [facility] Outreach Member Role: Lifetime Consulting Physician Care Team Related Persons Name: HAILEE PARHAM Insurance Providers Guarantor name: CHAVEZ PARHAM Health Plan Information #: 1 Payer: FRANCISCO J: ADVANCED PAYMENT EXAM Payer Identifier: NA Member Number: [id number] Group Number: NA Subscriber Identifier: NA Relationship to Subscriber: self Coverage Type: Other specified but not otherwise classifiable (includes Hospice - Unspecified plan) Coverage Verification Date: NA Telecom: NA Address:
--- OUTSIDE RECORDS SUMMARY | 2025-04-30 23:59 | XMS_ITS | Continuity of Care Document ---
Author Organization [facility] Address [address] [place] [address]- Care Team Providers Care Social Media Content Manager Name Role Phone Javier Paula MD Primary Care Physician Encounter 04/23/25 - 04/30/25 [facility] [address], [address] [place] [address]- Attending Physician: Javier Paula MD Admitting Physician: Javier Paula MD Referring Physician: Javier Paula MD Encounter Type: OutPatient One Time Allergies, Adverse Reactions, Alerts Substance Criticality Severity [...] vaccine, inactivated 3 04/01/11 Gi eron SARS-CoV-2(COVID-19)mRNA-LNP vac(vpp451) 03/06/25 Recorded SARS-CoV-2(COVID-19)mRNA-LNP vac(lua960) 03/21/23 Recorded SARS-CoV-2(COVID-19)mRNA-LNP vac(fmg315) 02/18/24 Recorded tetanus/diphtheria/pertussis, acel(Tdap) 10/13/22 Recorded [id number] 12y+ bivalent booster vax 02/26/22 Recorded SARS-CoV-2 mRNA ([id number]) vax 09/23/21 Recorded SARS-CoV-2 (COVID-19) mRNA BNT-162b2 vac 03/24/21 Recorded SARS-CoV-2 (COVID-19) mRNA BNT-162b2 vac 09/05/20 Recorded SARS-CoV-2 (COVID-19) mRNA BNT-162b2 vac 08/13/20 Recorded pneumococcal 13-valent vaccine 4 01/01/19 Given Fluarix (oldterm) 04/07/13 Given pneumococcal 23-valent vaccine 5 08/29/12 Given Tetanus-Diphth Toxoids, Adult (oldterm) 6 11/25/11 Given Zoster Vaccine Live 7 04/08/11 Given 1Result Comment: [03/31/2018] [facility] # [id number] 2Admin Note: was not entered on date given, was on billing sheet. Entered after.tt 3Admin Note: VIM 01/12/11 4Result Comment: [facility]#[id number] 5Admin Note: VIM 10/03/09 waiver signed 6Admin Note: in ED at [facility] 7Admin Note: vim given dated 03/25/09 Medications alfuzosin 10 mg oral tablet, extended release See Instructions, TAKE 1 TABLET BY MOUTH DAILY, # 90 tablet, 1 Refills, 02/12/25 11:13:00 AM EDT, [facility]/pharmacy #[id number], 181.2, cm, 02/09/24 7:57:00 EDT, Height Start Date: 02/12/25 Status: Ordered Medication Dispense Status: Completed Quantity: 90.0 Unit: tablet Total Allowed Fills: 2 Fills Dispensed: 0 Colace sodium 100 mg oral capsule 100 mg, 1, capsule, By Mouth, Daily, PRN, # 30 capsule, Refills 2, Tot. Refills 2, Maintenance, hard stool, 11/10/22 3:41:00 PM EDT, Route to Pharmacy Electronically, [facility]/pharmacy #[id number], Partial fill upon patient request if [...] 3 Refills, Maintenance, 03/26/25 2:43:00 PM EDT, [facility]/pharmacy #[id number], 181.2, cm, 03/26/25 14:10:00 EDT, Height Start Date: 03/26/25 Status: Ordered Medication Dispense Status: Completed Quantity: 90.0 Unit: capsule Total Allowed Fills: 4 Fills Dispensed: 0 finasteride 5 mg oral tablet 1 tablet = 5 mg, By Mouth, Daily, # 90 tablet, 1 Refills, Maintenance, 02/12/25 11:13:00 AM EDT, Tablet, [facility]/pharmacy #[id number], Partial fill upon patient request if [...] 3 Refills, Maintenance, 07/10/24 1:08:00 PM EST, [facility]/pharmacy #[id number], 181.2, cm, 02/09/24 7:57:00 EDT, Height, 81.2, kg, 07/19/22 8:01:00 EST, Dry Weight Start Date: 07/10/24 Status: Ordered Medication Dispense Status: Completed Quantity: 90.0 Unit: tablet Total Allowed Fills: 4 Fills Dispensed: 0 pravastatin 20 mg oral tablet 1, tablet, By Mouth, Daily, # 90 tablet, Refills 1, Tot. Refills 1, Maintenance, 02/12/25 11:13:00 AM EDT, Route to Pharmacy Electronically, [facility]/pharmacy #[id number], 181.2, cm, 02/09/24 7:57:00 EDT, Height Start Date: 02/12/25 Status: Ordered Medication Dispense Status: Completed Quantity: 90.0 Unit: tablet Total Allowed Fills: 2 Fills Dispensed: 0 traZODone 50 mg oral tablet 50 mg, 1, tablet, By Mouth, Daily at bedtime, # 90 tablet, Refills 3, Tot. Refills 3, Maintenance, 03/26/25 2:43:00 PM EDT, Route to Pharmacy Electronically, [facility]/pharmacy #[id number], Partial fill upon patient request if [...] Confirmed Active SVT - Supraventricular tachycardia Confirmed 2003 Active Results Radiology Reports * Exam Date Time Procedure Performing Provider Status 04/23/25 5:[address] Heart W/O Dye Rubio Eval Auth (Verified) Notes: (CT Heart W/O Dye Rubio Eval) Reason For Exam: Hyperlipidemia RESULT: CT Heart W/O Dye Rubio Eval CT Heart W/O Dye Rubio Eval INDICATION: Reason: Hyperlipidemia. Male of age 80 , race White COMPARISON: None TECHNIQUE: Coronary artery Calcium Scoring. After a localizing specimen technician image was obtained, an ECG-gated noncontrast exam was obtained of the heart in late diastole. The region of interest was limited to the heart in order to optimize image quality. Weight-based protocol using automatic tube modulation was used to optimize exposure parameters. A [employer]ics 64 scanner was used, with Agatston scoring performed using PerfectPost (Wisr) web-based software. This procedure is not being performed on thispatient for preoperative evaluation for low-risk surgery within 30 days. CTDIvol Body: 4.65 mGy, DLP Body: 79 mGy*cm. FINDINGS: Coronary Calcium Scoring Summary: Left Main: Score 0 . LAD: Score 24.5 . Circumflex: Score 0.769 . Right: Score 0 . Ramus: Score 0 . TOTAL: Score 25.3 . Non-coronary Findings: Lungs are clear. Normal size aorta. Normal size heart. No adenopathy. Upper abdomen is unremarkable. No acute bony findings. IMPRESSION: 1. No significant incidental findings. 2. The Agatston coronary calcium score is 25.3 . The observed calcium score is at the 12 percentile(PICKERING). The Multi-Ethnic Study of Atherosclerosis (PICKERING) trial on-line calculator can be used to determine the probability of having coronary calcification and the calcium score percentile for subjects basedon age, gender and race/ethnicity who are free of clinical cardiovascular disease and treated diabetes: http://www.pickering-nhlbi.org/Calcium/input.aspx WSN: [id number] Ordering Physician: Javier Paula Dictated By: Dori Cheney MD Dictated Date/Time: 04/25/25 11:26 a Reviewed By: Dori Cheney MD Signed By: Dori Cheney MD Signed Date/Time: 04/25/25 11:26 am Transcribed By: SHAYNA Transcribed Date/Time: 04/25/25 11:24 am Social History Social History Type Response Sexual Gender identity: Johnny ntifies as male. Smoking Status Former smoker entered on: 05/11/13 Sex Sex Representation Male (finding) Patient Care team information Care Team Personnel Name: Javier Paula MD Position: [facility] Physician - Primary Care Member Role: PCP Address: [address] [place] [address] [address] Telecom: Name: Marquita Harrison Position: [facility] Outreach Member Role: Lifetime Consulting Physician Care Team Related Persons Name: HAILEE PARHAM Insurance Providers Guarantor name: CHAVEZ PRASAD Health Plan Information #: 1 Payer: [employer]: [employer]MENT EXAM Payer Identifier: NA Member Number: [id number] Group Number: [id number] Subscriber Identifier: [id number] Relationship to Subscriber: self Coverage Type: Other specified but not otherwise classifiable (includes Hospice - Unspecified plan) Coverage Verification Date: NA Telecom: NA Address: [place]
--- NOTE | 2025-05-01 11:03 | MHC.OFFVIS ---
Intake Visit Reasons: PVR/Discuss medication for OAB Intake Note: Patient is present for Medication Discuss/PVR Urology Med: Finasteride, Tadalafil, Oxybutynin, Alfuzosin Antibiotic Allergy: None Blood Thinner: None LAST PVR:194 PVR:57ml 03/28/2025 PSA 1.6 Patient no longer feels the oxybutynin is effective would like to discuss other medications Video Games Storywriter Required: No Accompanied by: Self / Same As Patient Allergies Beta-Blockers (Beta-Adrenergic Bloc Adverse Reaction (Intermediate, Verified 05/01/25 11:05) Fatigued HPI Comments Details: Gaurav is a pleasant male. He is a patient of . He is seen for the following urologic conditions - lower urinary tract symptoms - renal cancer Still with urgency PVR 60 cc which is an improvement PSA low 04/13 1.6 Still with urgency Trial Toviaz Six week follow-up Obstructive symptoms resolved. Only waking once or twice at night. Does have storage related symptoms Lower urinary tract symptoms Discussion regarding progression of lower urinary tract symptoms Prior prostate procedure proximally 20 years ago Has recurrent symptoms with urinary urgency and frequency and some decline in stream Urge and frequency of primary concern particularly when traveling Cystoscopy performed at [facility] recommendation for repeat prostate procedure Per report UDS performed showing obstructive pattern Discussion today regarding management of urge frequency and relationship with bladder instability Highly likely to resolve with repeat outlet procedure however may also reflect underlying bladder instability Start daily tadalafil for bladder stability Currently on finasteride GreenLight laser procedure - 12/12 Renal cancer Partial nephrectomy performed approximately 2014 No recurrence on follow-up imaging PENDING SALE TO [facility] Medical History Renal cancer SVT (supraventricular tachycardia) Palpitations Thyroid disease Hyperlipidemia Constipation Chronic insomnia BPH (benign prostatic hyperplasia) Surgical History Hx of partial nephrectomy S/P TURP (status post transurethral resection of prostate) Social History Are you a primary residential child care counselor to a significant other at home: No Do you presently have visiting nurse or other home services: No Patient Tobacco Use Status: Former Tobacco user Tobacco use type: Cigarette Years Smoked: 2 Review of Systems Const Denies chills and Denies fever(s) Card Reports no additional complaints and Denies syncope Resp Denies cough GI Denies abdominal pain and Denies heartburn Reports as per HPI and Denies change in libido Neuro Denies syncope Psych Denies change in libido Endo Denies change in libido Physical Exam Const General: cooperative, healthy appearing, comfortable and no acute distress Orientation/consciousness: patient oriented x3 HEENT Face and sinus: Yes normal facial exam Mouth: moist mucous membranes Neck Neck: Yes normal visual inspection, Yes full ROM and Yes trachea midline Chest Chest palpation & inspection: normal inspection of the chest Resp Effort & Inspection: normal respiratory effort, able to speak in complete sentences and no respiratory distress GI Inspection: Yes normal to inspection Back/Spine/Pelvis Cervical Spine: normal cervical lordosis Thoracic/Lumbar Spine: thoracic and lumbar spine normal to inspection Skin General skin exam: no rashes or lesions noted Neuro General: patient oriented x3, gait normal, tone normal and moves all extremities Extrem General: Yes normal to inspection and Yes capillary refill normal Office Procedures Post Void Residual Post Residual Void Post Void Residual (PVR): 57 [id number] Void Residual by ultrasound Assessment & Plan Assessment & Plan (1) Overactive bladder: Code(s): N32.81 - Overactive bladder Category: Medical Plan 6 week follow-up tele Orders: Orders AMB Post Void Residual by ultrasound Today N40.1 - Benign prostatic hyperplasia with lower urinary tract symptoms Medications: New fesoterodine ER 4 mg PO DAILY 30 tabs 1RF 30 days N32.81 - Overactive bladder Discontinued oxybutynin chloride ER 1 tab in 24 hrs if needed Discontinued Reason: Doctor's Order 5 mg PO ONCE 30 days PRN 30 tabs 1RF bladder urge N40.1 - Benign prostatic hyperplasia with lower urinary tract symptoms Patient Instructions: This note is constructed using voice recognition software. While every effort has been made to ensure accuracy auctioneer art errors may have been included. Imaging studies, laboratory and physical exam results were discussed and reviewed in detail. No major barriers to patient understanding were identified. An opportunity to ask questions regarding the treatment plan was provided. All questions were answered. The patient expressed understanding and agreement with the above treatment plan. The patient is aware they should contact our office by phone for worsening of their current condition or the appearance of new urologic symptoms. Compliance is encouraged with any medications and followup testing that is ordered. It is a privilege to participate in the urologic care of your patient. If you have any questions or concerns regarding treatment for the above conditions, or other urologic issues, please do not hesitate to contact me. The office telephone contact is [phone]. Sincerely, Dr Mateo Hawkins MD, [facility] - Urology Compassionate Specialist Care for the Genitourinary System Coding Level of Care Code Est Pt Level 3 (59547) Complex EM visit Add On G2211 Diagnoses Overactive bladder N32.81 CPT Codes Post Residual Void - PVR CPT Code: 80681-Ckrf Void Residual by ultrasound ([id number])
--- OUTSIDE RECORDS SUMMARY | 2025-05-01 12:46 | XMS_ITS | Clinical Summary ---
Author Organization [facility] Address [address] [place] [address] Care Team Providers Care Casino Worker Name Role Phone Javier Paula MD Primary [...] age to complete this topic Care Teams Casino Worker Relationship Specialty Start Date End Date Javier Paula MD [address] [place] [address] PCP - General Family Medicine 10/07/17
== END 2025-05-01 11:37 | disposition home or self-care (01) ==
LOC: HO.HUSH 10:39
PROVIDERS: PCP Family Medicine; Visit Provider Urology
DX: N32.81 Overactive bladder (principal)
CPT/HCPCS: 99213; G2211

== ENCOUNTER → 2025-05-01 10:38 | Outpatient (BNVA) | payer MEDICARE, SELFPAY | PROVIDERS: PCP Family Medicine; Visit Provider Urology | DX: N32.81 Overactive bladder (principal); R39.15 Urgency of urination; R39.12 Poor urinary stream; R35.0 Frequency of micturition; Z87.891 Personal history of nicotine dependence | CPT/HCPCS: 51798; 99212 ==